=== PATIENT | male | born 1980 ===

== ENCOUNTER → 2018-06-02 22:03 | Outpatient (REF) | payer OTHER, SELFPAY ==
[2018-06-03 02:05] LABS: Hep C Virus Ab w/Reflex Quant NEGATIVE s/c (NEGATIVE)
[2018-06-03 02:10] LABS: Alanine Aminotransferase 43 IU/L (21-72); Albumin 4.9 g/dL (3.5-5.0); Alkaline Phosphatase 64 U/L (38-126); Aspartate Aminotransferase 27 IU/L (17-59); BUN Creatinine Ratio 17.3 (6-22); Blood Urea Nitrogen 19 mg/dL (9-20); Carbon Dioxide 24 mmol/L (22-32); Chloride 104 mmol/L (98-107); Estimated Glomerular Filt Rate > 60.0 mL/min (>60); Globulin 2.5 g/dL (1.7-4.1); Glucose 80 mg/dL (70-100); HEMOLYSIS < 15 (0-50); Potassium 4.2 mmol/L (3.4-5.1); Sodium 143 mmol/L (137-145); Total Protein 7.4 g/dL (6.3-8.2)
[2018-06-04 20:12] LABS: Estradiol 20 pg/mL (< 40)
[2018-06-06 19:41] LABS: HIV Ag/Ab, 4th Gen Nonreactive (Nonreactive)
[2018-06-08 13:40] LABS: Testosterone Total 345
== END ==
LOC: LAB 22:03
PROVIDERS: Visit Provider Naturopath
DX: B35.1 Tinea unguium (principal); E29.1 Testicular hypofunction; Z11.3 Encounter for screening for infections with a predominantly sexual mode of transmission
CPT/HCPCS: 36415; 80053; 82670; 84402; 84403; 86703; 86803; 87491; 87591

== ENCOUNTER → 2018-08-01 21:10 | Outpatient (REF) | payer OTHER, SELFPAY ==
[2018-08-01 21:47] LABS: Add Manual Diff / Slide Review NO; Basophils Absolute Auto 0 /uL (0-100); Basophils Percent Auto 0.6 % (0-2); Eosinophils Absolute Auto 100 /uL (0-450); Eosinophils Percent Auto 1.6 % (2-4); Hematocrit 46.8 % (41-53); Hemoglobin 15.9 g/dL (13.5-17.5); Lymphocytes Absolute Auto 2100 /uL (1100-4500); Lymphocytes Percent Auto 36.1 % (25-40); Mean Corpuscular HGB Conc 34.1 % (30-36); Mean Corpuscular Hemoglobin 32.4 PG (26-34); Mean Corpuscular Volume 95.1 fL (80-100); Monocytes Absolute Auto 400 /uL (0-900); Monocytes Percent Auto 7.1 % (3-14); Neutrophils Absolute Auto 3200 /uL (1500-7000); Neutrophils Percent Auto 54.6 % (50-75); Platelet Count 219 X10^3/uL (150-400); Red Blood Cell Count 4.92 X10^6/uL (4.5-5.9); White Blood Cell Count 5.9 X10^3/uL (4.5-11.0)
[2018-08-04 14:40] LABS: PSA Total 0.85 ng/mL (< 4.01)
[2018-08-06 10:17] LABS: Estradiol 22 pg/mL (< 40)
== END ==
LOC: LAB 21:10
PROVIDERS: Visit Provider Naturopath
DX: E29.1 Testicular hypofunction (principal); F90.9 Attention-deficit hyperactivity disorder, unspecified type; B35.1 Tinea unguium
CPT/HCPCS: 36415; 82670; 84153; 84154; 84270; 84402; 84403; 85025